=== PATIENT | male | born 1950 | race Caucasian/White ===

== ENCOUNTER 2019-04-03 09:29 | Outpatient (CLI) | payer MEDICARE, MEDICAID, SELFPAY ==
[2019-04-03 09:57] LABS: Abs Immature Grans 0.02 k/cumm (0.0-0.09); Absolute Basophil Count 0.03 k/cumm (0.0-0.2); Absolute Eosinophil Count 0.73 k/cumm (0.0-0.7); Absolute Lymphocyte Count 3.32 k/cumm (1.2-3.4); Absolute Monocyte Count 0.77 k/cumm (0.11-0.7); Absolute Neutrophil Count 4.16 k/cumm (1.2-6.7); Basophils % 0.3; Eosinophils % 8.1; HCT 38.2 % (40.0-50.0); HGB 12.7 g/dL (13.5-17.5); Immature Grans % 0.2; Lymphocytes % 36.8; Mean Corp. HGB Concentration 33.2 g/dL (32.0-36.0); Mean Corpuscular Hemoglobin 28.8 pg (27.0-33.0); Mean Corpuscular Volume 86.6 fL (80-95); Mean Platelet Volume 9.3 fL (8.0-11.0); Monocytes % 8.5; Neutrophils % 46.1; Platelet Count 333 x1000/uL (130-400); RBC 4.41 m/cumm (4.50-6.00); RBC Distribution Width 13.4 % (11.8-14.1); White Blood Cell Count 9.03 k/cumm (4.4-10.8)
[2019-04-03 10:12] LABS: ALT 19 U/L (12-78); AST 14 U/L (15-37); Albumin 3.5 g/dL (3.4-5.0); Alkaline Phosphatase 141 U/L (46-116); Anion Gap 9.4 mmol/L (3-11); BUN 24 mg/dL (7-18); Bilirubin, Total 0.4 mg/dL (0.2-1.0); CO2 27.6 mmol/L (21.0-32.0); CREATININE 1.83 mg/dL (0.70-1.30); Calcium 9.2 mg/dL (8.5-10.1); Chloride 103 mmol/L (98-107); Estimated GFR 36.78 (mL/min/1.73m2); Glucose 103 mg/dL (70-100); LDH 184 U/L (85-227); Potassium 4.1 mmol/L (3.5-5.1); Sodium 140 mmol/L (136-145); Total Protein 7.6 g/dL (6.4-8.2)
== END 2019-04-03 09:49 ==
PROVIDERS: PCP Family Medicine; Visit Provider Radiology Radiation Oncology
DX: C34.92 Malignant neoplasm of unspecified part of left bronchus or lung (principal)
CPT/HCPCS: 36415; 80053; 83615; 85025

== ENCOUNTER 2019-04-10 09:20 | Outpatient (CLI) | payer MEDICARE, MEDICAID, SELFPAY ==
[2019-04-10 09:54] LABS: Abs Immature Grans 0.05 k/cumm (0.0-0.09); Absolute Basophil Count 0.01 k/cumm (0.0-0.2); Absolute Eosinophil Count 0.31 k/cumm (0.0-0.7); Absolute Lymphocyte Count 1.46 k/cumm (1.2-3.4); Absolute Monocyte Count 0.35 k/cumm (0.11-0.7); Absolute Neutrophil Count 3.91 k/cumm (1.2-6.7); Basophils % 0.2; Eosinophils % 5.1; HCT 35.2 % (40.0-50.0); HGB 11.6 g/dL (13.5-17.5); Immature Grans % 0.8; Mean Corpuscular Hemoglobin 28.6 pg (27.0-33.0); Mean Corpuscular Volume 86.9 fL (80-95); Mean Platelet Volume 9.3 fL (8.0-11.0); Monocytes % 5.7; Neutrophils % 64.2; Platelet Count 329 x1000/uL (130-400); RBC 4.05 m/cumm (4.50-6.00); White Blood Cell Count 6.09 k/cumm (4.4-10.8)
[2019-04-10 10:08] LABS: ALT 18 U/L (12-78); AST 12 U/L (15-37); Albumin 3.1 g/dL (3.4-5.0); Alkaline Phosphatase 121 U/L (46-116); Anion Gap 5.5 mmol/L (3-11); BUN 26 mg/dL (7-18); Bilirubin, Total 0.3 mg/dL (0.2-1.0); CO2 29.5 mmol/L (21.0-32.0); CREATININE 1.75 mg/dL (0.70-1.30); Calcium 9.1 mg/dL (8.5-10.1); Chloride 104 mmol/L (98-107); Estimated GFR 38.73 (mL/min/1.73m2); Glucose 121 mg/dL (70-100); LDH 145 U/L (85-227); Potassium 4.9 mmol/L (3.5-5.1); Sodium 139 mmol/L (136-145)
== END 2019-04-10 09:40 ==
PROVIDERS: PCP Family Medicine; Visit Provider Registered Nurse Oncology
DX: C34.92 Malignant neoplasm of unspecified part of left bronchus or lung (principal)
CPT/HCPCS: 36415; 80053; 83615; 85025

== ENCOUNTER 2019-04-17 09:31 | Outpatient (CLI) | payer MEDICARE, MEDICAID, SELFPAY ==
[2019-04-17 09:59] LABS: Abs Immature Grans 0.02 k/cumm (0.0-0.09); Absolute Basophil Count 0.03 k/cumm (0.0-0.2); Absolute Eosinophil Count 0.22 k/cumm (0.0-0.7); Absolute Lymphocyte Count 0.88 k/cumm (1.2-3.4); Absolute Monocyte Count 0.41 k/cumm (0.11-0.7); Absolute Neutrophil Count 2.72 k/cumm (1.2-6.7); Basophils % 0.7; Eosinophils % 5.1; HCT 35.6 % (40.0-50.0); Immature Grans % 0.5; Lymphocytes % 20.6; Mean Corp. HGB Concentration 33.7 g/dL (32.0-36.0); Mean Corpuscular Hemoglobin 28.6 pg (27.0-33.0); Mean Platelet Volume 8.8 fL (8.0-11.0); Monocytes % 9.6; Neutrophils % 63.5; Platelet Count 263 x1000/uL (130-400); RBC 4.19 m/cumm (4.50-6.00); White Blood Cell Count 4.28 k/cumm (4.4-10.8)
[2019-04-17 10:15] LABS: ALT 20 U/L (12-78); AST 13 U/L (15-37); Albumin 3.3 g/dL (3.4-5.0); Alkaline Phosphatase 112 U/L (46-116); Anion Gap 9.3 mmol/L (3-11); BUN 22 mg/dL (7-18); Bilirubin, Total 0.3 mg/dL (0.2-1.0); CO2 27.7 mmol/L (21.0-32.0); CREATININE 1.42 mg/dL (0.70-1.30); Calcium 9.5 mg/dL (8.5-10.1); Chloride 102 mmol/L (98-107); Estimated GFR 49.29 (mL/min/1.73m2); Glucose 136 mg/dL (70-100); LDH 160 U/L (85-227); Potassium 4.1 mmol/L (3.5-5.1); Sodium 139 mmol/L (136-145); Total Protein 7.5 g/dL (6.4-8.2)
== END 2019-04-17 09:51 ==
PROVIDERS: PCP Family Medicine; Visit Provider Registered Nurse Oncology
DX: C34.92 Malignant neoplasm of unspecified part of left bronchus or lung (principal)
CPT/HCPCS: 36415; 80053; 83615; 85025

== ENCOUNTER 2019-04-24 01:57 | Outpatient (CLI) | payer MEDICARE, MEDICAID, SELFPAY ==
[2019-04-24 09:56] LABS: Abs Immature Grans 0.02 k/cumm (0.0-0.09); Absolute Basophil Count 0.03 k/cumm (0.0-0.2); Absolute Eosinophil Count 0.25 k/cumm (0.0-0.7); Absolute Lymphocyte Count 0.99 k/cumm (1.2-3.4); Absolute Monocyte Count 0.31 k/cumm (0.11-0.7); Absolute Neutrophil Count 2.13 k/cumm (1.2-6.7); Basophils % 0.8; Eosinophils % 6.7; HCT 34.1 % (40.0-50.0); HGB 11.5 g/dL (13.5-17.5); Immature Grans % 0.5; Lymphocytes % 26.5; Mean Corp. HGB Concentration 33.7 g/dL (32.0-36.0); Mean Corpuscular Hemoglobin 28.8 pg (27.0-33.0); Mean Corpuscular Volume 85.5 fL (80-95); Mean Platelet Volume 9.1 fL (8.0-11.0); Monocytes % 8.3; Neutrophils % 57.2; Platelet Count 276 x1000/uL (130-400); RBC 3.99 m/cumm (4.50-6.00); RBC Distribution Width 13.4 % (11.8-14.1); White Blood Cell Count 3.73 k/cumm (4.4-10.8)
[2019-04-24 10:06] LABS: ALT 27 U/L (16-63); AST 19 U/L (15-37); Albumin 3.2 g/dL (3.4-5.0); Alkaline Phosphatase 99 U/L (46-116); Anion Gap 10.1 mmol/L (3-11); BUN 22 mg/dL (7-18); Bilirubin, Total 0.3 mg/dL (0.2-1.0); CO2 25.9 mmol/L (21.0-32.0); CREATININE 1.35 mg/dL (0.70-1.30); Calcium 9.4 mg/dL (8.5-10.1); Chloride 102 mmol/L (98-107); Estimated GFR 52.25 (mL/min/1.73m2); Glucose 107 mg/dL (70-100); LDH 182 U/L (85-227); Potassium 4.7 mmol/L (3.5-5.1); Sodium 138 mmol/L (136-145); Total Protein 7.3 g/dL (6.4-8.2)
== END 2019-04-24 02:17 ==
PROVIDERS: PCP Family Medicine; Visit Provider Registered Nurse Oncology
DX: C34.92 Malignant neoplasm of unspecified part of left bronchus or lung (principal)
CPT/HCPCS: 36415; 80053; 83615; 85025

== ENCOUNTER 2019-05-02 01:09 | Outpatient (CLI) | payer MEDICARE, MEDICAID, SELFPAY ==
[2019-05-02 09:53] LABS: Abs Immature Grans 0.03 k/cumm (0.0-0.09); Absolute Basophil Count 0.06 k/cumm (0.0-0.2); Absolute Eosinophil Count 0.18 k/cumm (0.0-0.7); Absolute Lymphocyte Count 0.76 k/cumm (1.2-3.4); Absolute Monocyte Count 0.37 k/cumm (0.11-0.7); Absolute Neutrophil Count 2.53 k/cumm (1.2-6.7); Basophils % 1.5; Eosinophils % 4.6; HCT 34.9 % (40.0-50.0); HGB 11.7 g/dL (13.5-17.5); Immature Grans % 0.8; Lymphocytes % 19.3; Mean Corp. HGB Concentration 33.5 g/dL (32.0-36.0); Mean Corpuscular Hemoglobin 28.3 pg (27.0-33.0); Mean Corpuscular Volume 84.3 fL (80-95); Mean Platelet Volume 9.7 fL (8.0-11.0); Monocytes % 9.4; Neutrophils % 64.4; Platelet Count 252 x1000/uL (130-400); RBC 4.14 m/cumm (4.50-6.00); RBC Distribution Width 14.1 % (11.8-14.1); White Blood Cell Count 3.93 k/cumm (4.4-10.8)
[2019-05-02 10:38] LABS: ALT 52 U/L (16-63); AST 39 U/L (15-37); Albumin 3.3 g/dL (3.4-5.0); Alkaline Phosphatase 105 U/L (46-116); Anion Gap 13.5 mmol/L (3-11); BUN 28 mg/dL (7-18); Bilirubin, Total 0.4 mg/dL (0.2-1.0); CO2 22.5 mmol/L (21.0-32.0); CREATININE 2.01 mg/dL (0.70-1.30); Chloride 104 mmol/L (98-107); Estimated GFR 33.01 (mL/min/1.73m2); Glucose 101 mg/dL (70-100); LDH 218 U/L (85-227); Potassium 3.9 mmol/L (3.5-5.1); Sodium 140 mmol/L (136-145); Total Protein 7.3 g/dL (6.4-8.2)
== END 2019-05-02 01:29 ==
PROVIDERS: PCP Family Medicine; Visit Provider Registered Nurse Oncology
DX: C34.92 Malignant neoplasm of unspecified part of left bronchus or lung (principal)
CPT/HCPCS: 36415; 80053; 83615; 85025

== ENCOUNTER 2019-05-08 01:04 | Outpatient (CLI) | payer MEDICARE, MEDICAID, SELFPAY ==
[2019-05-08 09:58] LABS: Abs Immature Grans 0.01 k/cumm (0.0-0.09); Absolute Basophil Count 0.02 k/cumm (0.0-0.2); Absolute Eosinophil Count 0.13 k/cumm (0.0-0.7); Absolute Lymphocyte Count 0.49 k/cumm (1.2-3.4); Absolute Monocyte Count 0.16 k/cumm (0.11-0.7); Absolute Neutrophil Count 1.75 k/cumm (1.2-6.7); Basophils % 0.8; Eosinophils % 5.1; HCT 34.5 % (40.0-50.0); HGB 11.7 g/dL (13.5-17.5); Immature Grans % 0.4; Lymphocytes % 19.1; Mean Corp. HGB Concentration 33.9 g/dL (32.0-36.0); Mean Corpuscular Hemoglobin 28.8 pg (27.0-33.0); Mean Platelet Volume 9.1 fL (8.0-11.0); Monocytes % 6.3; Neutrophils % 68.3; RBC 4.06 m/cumm (4.50-6.00); RBC Distribution Width 14.9 % (11.8-14.1); White Blood Cell Count 2.56 k/cumm (4.4-10.8)
[2019-05-08 10:03] LABS: Platelet Count 137 x1000/uL (130-400)
[2019-05-08 10:24] LABS: ALT 58 U/L (16-63); AST 34 U/L (15-37); Albumin 3.3 g/dL (3.4-5.0); Alkaline Phosphatase 115 U/L (46-116); Anion Gap 9.3 mmol/L (3-11); BUN 17 mg/dL (7-18); Bilirubin, Total 0.3 mg/dL (0.2-1.0); CO2 24.7 mmol/L (21.0-32.0); CREATININE 1.34 mg/dL (0.70-1.30); Calcium 9.1 mg/dL (8.5-10.1); Chloride 107 mmol/L (98-107); Glucose 125 mg/dL (70-100); LDH 212 U/L (85-227); Potassium 4.5 mmol/L (3.5-5.1); Sodium 141 mmol/L (136-145)
== END 2019-05-08 01:24 ==
PROVIDERS: PCP Family Medicine; Visit Provider Registered Nurse Oncology
DX: C34.92 Malignant neoplasm of unspecified part of left bronchus or lung (principal)
CPT/HCPCS: 36415; 80053; 83615; 85025

== ENCOUNTER 2019-05-15 01:26 | Outpatient (CLI) | payer MEDICARE, MEDICAID, SELFPAY ==
[2019-05-15 09:45] LABS: Abs Immature Grans 0.01 k/cumm (0.0-0.09); Absolute Basophil Count 0.01 k/cumm (0.0-0.2); Absolute Eosinophil Count 0.06 k/cumm (0.0-0.7); Absolute Lymphocyte Count 0.46 k/cumm (1.2-3.4); Absolute Monocyte Count 0.32 k/cumm (0.11-0.7); Absolute Neutrophil Count 1.42 k/cumm (1.2-6.7); Basophils % 0.4; Eosinophils % 2.6; HCT 27.4 % (40.0-50.0); HGB 9.3 g/dL (13.5-17.5); Immature Grans % 0.4; Lymphocytes % 20.2; Mean Corp. HGB Concentration 33.9 g/dL (32.0-36.0); Mean Corpuscular Hemoglobin 28.7 pg (27.0-33.0); Mean Corpuscular Volume 84.6 fL (80-95); Neutrophils % 62.4; Platelet Count 164 x1000/uL (130-400); RBC 3.24 m/cumm (4.50-6.00); RBC Distribution Width 14.8 % (11.8-14.1); White Blood Cell Count 2.28 k/cumm (4.4-10.8)
[2019-05-15 09:54] LABS: ALT 29 U/L (16-63); AST 20 U/L (15-37); Albumin 2.9 g/dL (3.4-5.0); Alkaline Phosphatase 106 U/L (46-116); Anion Gap 10.8 mmol/L (3-11); BUN 12 mg/dL (7-18); Bilirubin, Total 0.4 mg/dL (0.2-1.0); CO2 21.2 mmol/L (21.0-32.0); CREATININE 1.28 mg/dL (0.70-1.30); Calcium 8.7 mg/dL (8.5-10.1); Chloride 105 mmol/L (98-107); Estimated GFR 55.56 (mL/min/1.73m2); Glucose 113 mg/dL (70-100); LDH 177 U/L (85-227); Sodium 137 mmol/L (136-145); Total Protein 6.5 g/dL (6.4-8.2)
[2019-05-15 10:19] LABS: Diff Comment Diff Reviewed; RBC Morphology Normal
== END 2019-05-15 01:46 ==
PROVIDERS: PCP Family Medicine; Visit Provider Registered Nurse Oncology
DX: C34.92 Malignant neoplasm of unspecified part of left bronchus or lung (principal)
CPT/HCPCS: 36415; 80053; 83615; 85025

== ENCOUNTER 2019-05-22 10:34 | Outpatient (CLI) | payer MEDICARE, MEDICAID, SELFPAY ==
[2019-05-22 10:59] LABS: Abs Immature Grans 0.02 k/cumm (0.0-0.09); Absolute Basophil Count 0.03 k/cumm (0.0-0.2); Absolute Eosinophil Count 0.05 k/cumm (0.0-0.7); Absolute Lymphocyte Count 0.55 k/cumm (1.2-3.4); Absolute Monocyte Count 0.58 k/cumm (0.11-0.7); Absolute Neutrophil Count 1.46 k/cumm (1.2-6.7); Basophils % 1.1; Eosinophils % 1.9; HCT 28.9 % (40.0-50.0); HGB 9.8 g/dL (13.5-17.5); Immature Grans % 0.7; Lymphocytes % 20.4; Mean Corp. HGB Concentration 33.9 g/dL (32.0-36.0); Mean Corpuscular Hemoglobin 29.8 pg (27.0-33.0); Mean Corpuscular Volume 87.8 fL (80-95); Mean Platelet Volume 7.8 fL (8.0-11.0); Monocytes % 21.6; Neutrophils % 54.3; Platelet Count 294 x1000/uL (130-400); RBC 3.29 m/cumm (4.50-6.00); RBC Distribution Width 19.2 % (11.8-14.1); White Blood Cell Count 2.69 k/cumm (4.4-10.8)
[2019-05-22 11:09] LABS: ALT 24 U/L (16-63); AST 26 U/L (15-37); Albumin 3.1 g/dL (3.4-5.0); Alkaline Phosphatase 107 U/L (46-116); BUN 10 mg/dL (7-18); Bilirubin, Total 0.3 mg/dL (0.2-1.0); Calcium 9.2 mg/dL (8.5-10.1); Chloride 102 mmol/L (98-107); Estimated GFR 37.49 (mL/min/1.73m2); Glucose 105 mg/dL (70-100); LDH 226 U/L (85-227); Potassium 4.4 mmol/L (3.5-5.1); Sodium 136 mmol/L (136-145); Total Protein 6.9 g/dL (6.4-8.2)
[2019-05-22 11:17] LABS: Anisocytosis 2+; Basophilic Stippling Present; Diff Comment Diff Reviewed; Hypochromasia 1+; Macrocytosis 1+; Microcytosis 1+; Polychromasia Present
== END 2019-05-22 10:54 ==
PROVIDERS: PCP Family Medicine; Visit Provider Registered Nurse Oncology
DX: C34.92 Malignant neoplasm of unspecified part of left bronchus or lung (principal)
CPT/HCPCS: 36415; 80053; 83615; 85025

== ENCOUNTER 2019-09-22 06:58 | Outpatient (CLI) | payer MEDICARE, MEDICAID, SELFPAY ==
[2019-09-22 07:17] LABS: Abs Immature Grans 0.02 k/cumm (0.0-0.09); Absolute Basophil Count 0.02 k/cumm (0.0-0.2); Absolute Lymphocyte Count 1.54 k/cumm (1.2-3.4); Absolute Monocyte Count 0.73 k/cumm (0.11-0.7); Absolute Neutrophil Count 7.07 k/cumm (1.2-6.7); Basophils % 0.2; Eosinophils % 2.1; HGB 13.1 g/dL (13.5-17.5); Immature Grans % 0.2 %; Lymphocytes % 16.1; Mean Corp. HGB Concentration 32.8 g/dL (32.0-36.0); Mean Corpuscular Hemoglobin 25.8 pg (27.0-33.0); Mean Corpuscular Volume 78.9 fL (80-95); Mean Platelet Volume 8.5 fL (8.0-11.0); Monocytes % 7.6; Neutrophils % 73.8; Platelet Count 392 x1000/uL (130-400); RBC 5.07 m/cumm (4.50-6.00); RBC Distribution Width 14.2 % (11.8-14.1); White Blood Cell Count 9.58 k/cumm (4.4-10.8)
[2019-09-22 07:26] LABS: ALT 18 U/L (16-63); AST 19 U/L (15-37); Albumin 3.5 g/dL (3.4-5.0); Alkaline Phosphatase 100 U/L (46-116); Anion Gap 8.2 mmol/L (3-11); BUN 14 mg/dL (7-18); Bilirubin, Total 0.3 mg/dL (0.2-1.0); CO2 29.8 mmol/L (21.0-32.0); Calcium 9.8 mg/dL (8.5-10.1); Chloride 101 mmol/L (98-107); Estimated GFR 54.42 (mL/min/1.73m2); Glucose 177 mg/dL (74-106); LDH 171 U/L (85-227); Potassium 3.5 mmol/L (3.5-5.1); Sodium 139 mmol/L (136-145); Total Protein 8.1 g/dL (6.4-8.2)
[2019-09-22 09:20] LABS: FREE T4 0.86 ng/dL (0.76-1.46); TSH 2.89 uIU/mL (0.36-3.74)
== END 2019-09-22 07:18 ==
PROVIDERS: PCP Family Medicine; Visit Provider Registered Nurse Oncology
DX: C34.92 Malignant neoplasm of unspecified part of left bronchus or lung (principal); E03.2 Hypothyroidism due to medicaments and other exogenous substances; C77.9 Secondary and unspecified malignant neoplasm of lymph node, unspecified
CPT/HCPCS: 36415; 80053; 83615; 84439; 84443; 85025

== ENCOUNTER 2019-10-19 02:18 | Outpatient (RCR) | payer MEDICARE, MEDICAID, SELFPAY ==
[2019-10-05] MEDS: Normal Saline Flush 10 ML SYR IVP (08:00)
[2019-10-05 08:23] LABS: Abs Immature Grans 0.02 k/cumm (0.0-0.09); Absolute Basophil Count 0.02 k/cumm (0.0-0.2); Absolute Eosinophil Count 0.39 k/cumm (0.0-0.7); Absolute Lymphocyte Count 1.96 k/cumm (1.2-3.4); Absolute Monocyte Count 0.67 k/cumm (0.11-0.7); Basophils % 0.2; Eosinophils % 4.8; HCT 36.5 % (40.0-50.0); HGB 11.6 g/dL (13.5-17.5); Immature Grans % 0.2 %; Lymphocytes % 24.3; Mean Corp. HGB Concentration 31.8 g/dL (32.0-36.0); Mean Corpuscular Hemoglobin 25.2 pg (27.0-33.0); Mean Corpuscular Volume 79.2 fL (80-95); Mean Platelet Volume 8.4 fL (8.0-11.0); Monocytes % 8.3; Neutrophils % 62.2; Platelet Count 389 x1000/uL (130-400); RBC 4.61 m/cumm (4.50-6.00); RBC Distribution Width 14.7 % (11.8-14.1); White Blood Cell Count 8.06 k/cumm (4.4-10.8)
[2019-10-05 08:45] LABS: ALT 18 U/L (16-63); AST 21 U/L (15-37); Albumin 3.4 g/dL (3.4-5.0); Alkaline Phosphatase 110 U/L (46-116); Anion Gap 7.9 mmol/L (3-11); BUN 16 mg/dL (7-18); Bilirubin, Total 0.2 mg/dL (0.2-1.0); CO2 31.1 mmol/L (21.0-32.0); CREATININE 1.27 mg/dL (0.70-1.30); Calcium 9.6 mg/dL (8.5-10.1); Chloride 102 mmol/L (98-107); Estimated GFR 55.91 (mL/min/1.73m2); FREE T4 0.97 ng/dL (0.76-1.46); Glucose 81 mg/dL (74-106); LDH 188 U/L (85-227); Sodium 141 mmol/L (136-145); TSH 17.08 uIU/mL (0.36-3.74); Total Protein 7.8 g/dL (6.4-8.2)
[2019-10-19 08:34] LABS: Abs Immature Grans 0.02 k/cumm (0.0-0.09); Absolute Basophil Count 0.03 k/cumm (0.0-0.2); Absolute Eosinophil Count 0.29 k/cumm (0.0-0.7); Absolute Lymphocyte Count 1.71 k/cumm (1.2-3.4); Absolute Monocyte Count 0.58 k/cumm (0.11-0.7); Absolute Neutrophil Count 5.25 k/cumm (1.2-6.7); Basophils % 0.4; Eosinophils % 3.7; HCT 35.7 % (40.0-50.0); HGB 11.5 g/dL (13.5-17.5); Immature Grans % 0.3 %; Lymphocytes % 21.7; Mean Corp. HGB Concentration 32.2 g/dL (32.0-36.0); Mean Corpuscular Hemoglobin 25.6 pg (27.0-33.0); Mean Corpuscular Volume 79.3 fL (80-95); Mean Platelet Volume 8.3 fL (8.0-11.0); Monocytes % 7.4; Neutrophils % 66.5; Platelet Count 371 x1000/uL (130-400); White Blood Cell Count 7.88 k/cumm (4.4-10.8)
[2019-10-19 08:58] LABS: ALT 18 U/L (16-63); AST 23 U/L (15-37); Albumin 3.2 g/dL (3.4-5.0); Alkaline Phosphatase 111 U/L (46-116); Anion Gap 9.9 mmol/L (3-11); BUN 20 mg/dL (7-18); Bilirubin, Total 0.2 mg/dL (0.2-1.0); CO2 29.1 mmol/L (21.0-32.0); CREATININE 1.35 mg/dL (0.70-1.30); Calcium 9.3 mg/dL (8.5-10.1); Chloride 103 mmol/L (98-107); FREE T4 1.03 ng/dL (0.76-1.46); Glucose 146 mg/dL (74-106); LDH 173 U/L (85-227); Potassium 3.7 mmol/L (3.5-5.1); Sodium 142 mmol/L (136-145); TSH 8.91 uIU/mL (0.36-3.74); Total Protein 7.6 g/dL (6.4-8.2)
[2019-10-19] MEDS: Normal Saline Flush 10 ML SYR IVP (09:05)
== END 2019-10-28 23:59 | disposition home or self-care (01) ==
LOC: INF 02:18
PROVIDERS: PCP Family Medicine; Visit Provider Internal Medicine Hospice and Palliative Medicine
DX: C77.9 Secondary and unspecified malignant neoplasm of lymph node, unspecified (principal); Z79.899 Other long term (current) drug therapy
CPT/HCPCS: 36591; 80053; 83615; 84439; 84443; 85025

== ENCOUNTER 2019-11-16 00:44 | Outpatient (RCR) | payer MEDICARE, MEDICAID, SELFPAY ==
[2019-11-02] MEDS: Normal Saline Flush 10 ML SYR IVP (07:56)
[2019-11-02 08:03] LABS: Abs Immature Grans 0.02 k/cumm (0.0-0.09); Absolute Basophil Count 0.04 k/cumm (0.0-0.2); Absolute Lymphocyte Count 1.78 k/cumm (1.2-3.4); Absolute Monocyte Count 0.68 k/cumm (0.11-0.7); Basophils % 0.5; Eosinophils % 5.1; HCT 36.4 % (40.0-50.0); HGB 11.6 g/dL (13.5-17.5); Immature Grans % 0.3 %; Lymphocytes % 22.8; Mean Corp. HGB Concentration 31.9 g/dL (32.0-36.0); Mean Corpuscular Hemoglobin 25.3 pg (27.0-33.0); Mean Corpuscular Volume 79.3 fL (80-95); Mean Platelet Volume 8.3 fL (8.0-11.0); Monocytes % 8.7; Neutrophils % 62.6; Platelet Count 354 x1000/uL (130-400); RBC 4.59 m/cumm (4.50-6.00); RBC Distribution Width 15.9 % (11.8-14.1); White Blood Cell Count 7.82 k/cumm (4.4-10.8)
[2019-11-02 08:22] LABS: ALT 21 U/L (16-63); AST 16 U/L (15-37); Albumin 3.5 g/dL (3.4-5.0); Alkaline Phosphatase 116 U/L (46-116); Anion Gap 7.9 mmol/L (3-11); BUN 18 mg/dL (7-18); Bilirubin, Total 0.2 mg/dL (0.2-1.0); CO2 29.1 mmol/L (21.0-32.0); CREATININE 1.26 mg/dL (0.70-1.30); Chloride 101 mmol/L (98-107); Estimated GFR 56.42 (mL/min/1.73m2); FREE T4 1.22 ng/dL (0.76-1.46); Glucose 129 mg/dL (74-106); LDH 156 U/L (85-227); Sodium 138 mmol/L (136-145); Total Protein 7.7 g/dL (6.4-8.2)
[2019-11-02 08:58] LABS: Ferritin 43 ng/mL (26-388)
[2019-11-02 09:13] LABS: Iron 29 ug/dL (65-175); Total Iron Binding Capacity 214 ug/dL (250-450); Transferrin Sat 14 % (20-55)
[2019-11-02 13:31] LABS: TSH 8.02 uIU/mL (0.36-3.74)
[2019-11-16] MEDS: Normal Saline Flush 10 ML SYR IVP (07:42)
[2019-11-16 07:47] LABS: Abs Immature Grans 0.02 k/cumm (0.0-0.09); Absolute Basophil Count 0.03 k/cumm (0.0-0.2); Absolute Lymphocyte Count 1.45 k/cumm (1.2-3.4); Absolute Neutrophil Count 5.24 k/cumm (1.2-6.7); Basophils % 0.4; Eosinophils % 5.2; HCT 36.3 % (40.0-50.0); HGB 11.7 g/dL (13.5-17.5); Immature Grans % 0.3 %; Lymphocytes % 18.7; Mean Corp. HGB Concentration 32.2 g/dL (32.0-36.0); Mean Corpuscular Hemoglobin 25.6 pg (27.0-33.0); Mean Corpuscular Volume 79.4 fL (80-95); Mean Platelet Volume 8.5 fL (8.0-11.0); Monocytes % 7.8; Neutrophils % 67.6; Platelet Count 377 x1000/uL (130-400); RBC 4.57 m/cumm (4.50-6.00); White Blood Cell Count 7.74 k/cumm (4.4-10.8)
[2019-11-16 08:18] LABS: ALT 20 U/L (16-63); AST 17 U/L (15-37); Albumin 3.5 g/dL (3.4-5.0); Alkaline Phosphatase 102 U/L (46-116); BUN 18 mg/dL (7-18); Bilirubin, Total 0.3 mg/dL (0.2-1.0); CREATININE 1.27 mg/dL (0.70-1.30); Calcium 9.2 mg/dL (8.5-10.1); Chloride 102 mmol/L (98-107); Estimated GFR 55.91 (mL/min/1.73m2); FREE T4 1.14 ng/dL (0.76-1.46); Glucose 151 mg/dL (74-106); LDH 157 U/L (85-227); Potassium 4.2 mmol/L (3.5-5.1); Sodium 139 mmol/L (136-145); TSH 3.19 uIU/mL (0.36-3.74)
[2019-11-16 08:24] LABS: Ferritin 48 ng/mL (26-388)
[2019-11-16 08:58] LABS: Iron 31 ug/dL (65-175); Total Iron Binding Capacity 248 ug/dL (250-450); Transferrin Sat 13 % (20-55)
== END 2019-11-28 23:59 | disposition home or self-care (01) ==
LOC: INF 00:44
PROVIDERS: Nurse Practitioner Adult Health; PCP Family Medicine; Visit Provider Internal Medicine Hospice and Palliative Medicine
DX: D64.9 Anemia, unspecified (principal); C77.9 Secondary and unspecified malignant neoplasm of lymph node, unspecified; E03.2 Hypothyroidism due to medicaments and other exogenous substances; Z45.2 Encounter for adjustment and management of vascular access device
CPT/HCPCS: 36591; 80053; 82728; 83540; 83550; 83615; 84439; 84443; 85025

== ENCOUNTER 2019-12-28 01:04 | Outpatient (RCR) | payer MEDICARE, MEDICAID, SELFPAY ==
[2019-11-30] MEDS: Normal Saline Flush 10 ML SYR IVP (07:47)
[2019-11-30 07:56] LABS: Abs Immature Grans 0.02 k/cumm (0.0-0.09); Absolute Basophil Count 0.01 k/cumm (0.0-0.2); Absolute Eosinophil Count 0.37 k/cumm (0.0-0.7); Absolute Lymphocyte Count 1.43 k/cumm (1.2-3.4); Absolute Monocyte Count 0.64 k/cumm (0.11-0.7); Absolute Neutrophil Count 5.42 k/cumm (1.2-6.7); Basophils % 0.1; Eosinophils % 4.7; HCT 35.8 % (40.0-50.0); HGB 11.5 g/dL (13.5-17.5); Immature Grans % 0.3 %; Lymphocytes % 18.1; Mean Corp. HGB Concentration 32.1 g/dL (32.0-36.0); Mean Corpuscular Hemoglobin 25.6 pg (27.0-33.0); Mean Corpuscular Volume 79.6 fL (80-95); Mean Platelet Volume 8.3 fL (8.0-11.0); Monocytes % 8.1; Neutrophils % 68.7; Platelet Count 347 x1000/uL (130-400); RBC Distribution Width 15.4 % (11.8-14.1); White Blood Cell Count 7.89 k/cumm (4.4-10.8)
[2019-11-30 08:10] LABS: ALT 24 U/L (16-63); AST 18 U/L (15-37); Albumin 3.4 g/dL (3.4-5.0); Alkaline Phosphatase 117 U/L (46-116); Anion Gap 6.7 mmol/L (3-11); BUN 19 mg/dL (7-18); Bilirubin, Total 0.3 mg/dL (0.2-1.0); CO2 29.3 mmol/L (21.0-32.0); CREATININE 1.34 mg/dL (0.70-1.30); Calcium 9.4 mg/dL (8.5-10.1); Chloride 101 mmol/L (98-107); Estimated GFR 52.55 (mL/min/1.73m2); Glucose 167 mg/dL (74-106); Potassium 4.1 mmol/L (3.5-5.1); Sodium 137 mmol/L (136-145)
[2019-12-14] MEDS: Normal Saline Flush 10 ML SYR IVP (09:36)
[2019-12-14 09:47] LABS: Abs Immature Grans 0.02 k/cumm (0.0-0.09); Absolute Basophil Count 0.01 k/cumm (0.0-0.2); Absolute Eosinophil Count 0.19 k/cumm (0.0-0.7); Absolute Monocyte Count 0.56 k/cumm (0.11-0.7); Absolute Neutrophil Count 9.28 k/cumm (1.2-6.7); Basophils % 0.1; Eosinophils % 1.7; HCT 37.4 % (40.0-50.0); Immature Grans % 0.2 %; Lymphocytes % 9.5; Mean Corp. HGB Concentration 32.1 g/dL (32.0-36.0); Mean Corpuscular Hemoglobin 25.4 pg (27.0-33.0); Mean Corpuscular Volume 79.2 fL (80-95); Mean Platelet Volume 8.6 fL (8.0-11.0); Neutrophils % 83.5; Platelet Count 339 x1000/uL (130-400); RBC 4.72 m/cumm (4.50-6.00); RBC Distribution Width 14.9 % (11.8-14.1); White Blood Cell Count 11.11 k/cumm (4.4-10.8)
[2019-12-14 10:10] LABS: Absolute Lymphocyte Count 1.06 k/cumm (1.2-3.4)
[2019-12-14 10:14] LABS: ALT 22 U/L (16-63); AST 18 U/L (15-37); Albumin 3.5 g/dL (3.4-5.0); Alkaline Phosphatase 103 U/L (46-116); Anion Gap 6.6 mmol/L (3-11); BUN 21 mg/dL (7-18); Bilirubin, Total 0.3 mg/dL (0.2-1.0); CO2 31.4 mmol/L (21.0-32.0); CREATININE 1.39 mg/dL (0.70-1.30); Calcium 9.7 mg/dL (8.5-10.1); Chloride 101 mmol/L (98-107); Estimated GFR 50.37 (mL/min/1.73m2); FREE T4 1.09 ng/dL (0.76-1.46); Glucose 163 mg/dL (74-106); LDH 156 U/L (85-227); Potassium 4.2 mmol/L (3.5-5.1); Sodium 139 mmol/L (136-145); TSH 1.57 uIU/mL (0.36-3.74); Total Protein 8.1 g/dL (6.4-8.2)
== END 2019-12-28 23:59 | disposition home or self-care (01) ==
LOC: INF 01:04
PROVIDERS: PCP Family Medicine; Visit Provider Internal Medicine Hospice and Palliative Medicine
DX: D64.9 Anemia, unspecified (principal); Z45.2 Encounter for adjustment and management of vascular access device
CPT/HCPCS: 36591; 80053; 83615; 84439; 84443; 85025

== ENCOUNTER 2020-01-11 01:38 | Outpatient (RCR) | payer MEDICARE, MEDICAID, SELFPAY ==
[2020-01-11] MEDS: Normal Saline Flush 10 ML SYR IVP (12:23)
[2020-01-11 12:50] LABS: Abs Immature Grans 0.02 k/cumm (0.0-0.09); Absolute Basophil Count 0.02 k/cumm (0.0-0.2); Absolute Eosinophil Count 0.38 k/cumm (0.0-0.7); Absolute Lymphocyte Count 1.61 k/cumm (1.2-3.4); Absolute Monocyte Count 0.65 k/cumm (0.11-0.7); Absolute Neutrophil Count 6.52 k/cumm (1.2-6.7); Basophils % 0.2; Eosinophils % 4.1; HCT 37.9 % (40.0-50.0); HGB 12.6 g/dL (13.5-17.5); Immature Grans % 0.2 %; Lymphocytes % 17.5; Mean Corp. HGB Concentration 33.2 g/dL (32.0-36.0); Mean Corpuscular Hemoglobin 26.4 pg (27.0-33.0); Mean Corpuscular Volume 79.3 fL (80-95); Mean Platelet Volume 8.7 fL (8.0-11.0); Monocytes % 7.1; Neutrophils % 70.9; Platelet Count 319 x1000/uL (130-400); RBC 4.78 m/cumm (4.50-6.00); RBC Distribution Width 14.6 % (11.8-14.1)
[2020-01-11 13:11] LABS: ALT 25 U/L (16-63); AST 18 U/L (15-37); Albumin 3.7 g/dL (3.4-5.0); Alkaline Phosphatase 132 U/L (46-116); Anion Gap 7.3 mmol/L (3-11); BUN 18 mg/dL (7-18); Bilirubin, Total 0.3 mg/dL (0.2-1.0); CO2 28.7 mmol/L (21.0-32.0); CREATININE 1.24 mg/dL (0.70-1.30); Calcium 9.6 mg/dL (8.5-10.1); Chloride 98 mmol/L (98-107); Estimated GFR 57.47 (mL/min/1.73m2); FREE T4 1.21 ng/dL (0.76-1.46); Glucose 199 mg/dL (74-106); LDH 179 U/L (85-227); Potassium 4.1 mmol/L (3.5-5.1); Sodium 134 mmol/L (136-145); TSH 4.63 uIU/mL (0.36-3.74); Total Protein 8.1 g/dL (6.4-8.2)
== END 2020-01-28 23:59 | disposition home or self-care (01) ==
LOC: INF 01:38
PROVIDERS: PCP Family Medicine; Visit Provider Internal Medicine Hospice and Palliative Medicine
DX: D46.9 Myelodysplastic syndrome, unspecified (principal); Z45.2 Encounter for adjustment and management of vascular access device; E03.9 Hypothyroidism, unspecified
CPT/HCPCS: 36591; 80053; 83615; 84439; 84443; 85025

== ENCOUNTER 2020-02-08 10:02 | Outpatient (RCR) | payer MEDICARE, MEDICAID, SELFPAY ==
[2020-02-08 10:38] LABS: Abs Immature Grans 0.02 k/cumm (0.0-0.09); Absolute Basophil Count 0.03 k/cumm (0.0-0.2); Absolute Eosinophil Count 0.45 k/cumm (0.0-0.7); Absolute Lymphocyte Count 1.84 k/cumm (1.2-3.4); Absolute Neutrophil Count 4.47 k/cumm (1.2-6.7); Basophils % 0.4; HGB 12.6 g/dL (13.5-17.5); Immature Grans % 0.3 %; Lymphocytes % 24.5; Mean Corp. HGB Concentration 33.2 g/dL (32.0-36.0); Mean Corpuscular Hemoglobin 26.8 pg (27.0-33.0); Mean Corpuscular Volume 80.7 fL (80-95); Mean Platelet Volume 8.9 fL (8.0-11.0); Monocytes % 9.3; Neutrophils % 59.5; Platelet Count 305 x1000/uL (130-400); RBC 4.71 m/cumm (4.50-6.00); RBC Distribution Width 14.9 % (11.8-14.1); White Blood Cell Count 7.51 k/cumm (4.4-10.8)
[2020-02-08] MEDS: Normal Saline Flush 10 ML SYR IVP (10:44)
[2020-02-08 10:59] LABS: ALT 24 U/L (16-63); AST 19 U/L (15-37); Albumin 3.6 g/dL (3.4-5.0); Alkaline Phosphatase 119 U/L (46-116); Anion Gap 9.2 mmol/L (3-11); BUN 18 mg/dL (7-18); Bilirubin, Total 0.3 mg/dL (0.2-1.0); CO2 27.8 mmol/L (21.0-32.0); Calcium 9.1 mg/dL (8.5-10.1); Chloride 102 mmol/L (98-107); Estimated GFR 49.96 (mL/min/1.73m2); FREE T4 1.19 ng/dL (0.76-1.46); Glucose 112 mg/dL (74-106); LDH 162 U/L (85-227); Potassium 3.9 mmol/L (3.5-5.1); Sodium 139 mmol/L (136-145); TSH 5.84 uIU/mL (0.36-3.74); Total Protein 7.9 g/dL (6.4-8.2)
== END 2020-02-27 23:59 | disposition home or self-care (01) ==
LOC: INF 10:02
PROVIDERS: PCP Family Medicine; Visit Provider Nurse Practitioner Adult Health
DX: C77.9 Secondary and unspecified malignant neoplasm of lymph node, unspecified (principal); Z45.2 Encounter for adjustment and management of vascular access device; E03.2 Hypothyroidism due to medicaments and other exogenous substances
CPT/HCPCS: 36591; 80053; 83615; 84439; 84443; 85025

== ENCOUNTER 2020-03-07 00:58 | Outpatient (RCR) | payer MEDICARE, MEDICAID, SELFPAY ==
[2020-03-07] MEDS: Normal Saline Flush 10 ML SYR IVP (12:03)
[2020-03-07 12:08] LABS: Abs Immature Grans 0.01 k/cumm (0.0-0.09); Absolute Basophil Count 0.02 k/cumm (0.0-0.2); Absolute Eosinophil Count 0.51 k/cumm (0.0-0.7); Absolute Lymphocyte Count 1.68 k/cumm (1.2-3.4); Absolute Monocyte Count 0.76 k/cumm (0.11-0.7); Absolute Neutrophil Count 5.09 k/cumm (1.2-6.7); Basophils % 0.2; Eosinophils % 6.3; HCT 38.9 % (40.0-50.0); HGB 12.6 g/dL (13.5-17.5); Immature Grans % 0.1 %; Lymphocytes % 20.8; Mean Corp. HGB Concentration 32.4 g/dL (32.0-36.0); Mean Corpuscular Hemoglobin 26.8 pg (27.0-33.0); Mean Corpuscular Volume 82.6 fL (80-95); Mean Platelet Volume 8.6 fL (8.0-11.0); Monocytes % 9.4; Neutrophils % 63.2; Platelet Count 305 x1000/uL (130-400); RBC 4.71 m/cumm (4.50-6.00); RBC Distribution Width 15.2 % (11.8-14.1); White Blood Cell Count 8.07 k/cumm (4.4-10.8)
[2020-03-07 12:31] LABS: ALT 26 U/L (16-63); AST 23 U/L (15-37); Albumin 3.6 g/dL (3.4-5.0); Alkaline Phosphatase 113 U/L (46-116); Anion Gap 8.7 mmol/L (3-11); BUN 16 mg/dL (7-18); Bilirubin, Total 0.3 mg/dL (0.2-1.0); CO2 28.3 mmol/L (21.0-32.0); CREATININE 1.33 mg/dL (0.70-1.30); Calcium 9.7 mg/dL (8.5-10.1); Chloride 102 mmol/L (98-107); FREE T4 1.18 ng/dL (0.76-1.46); Glucose 121 mg/dL (74-106); LDH 154 U/L (85-227); Potassium 3.8 mmol/L (3.5-5.1); Sodium 139 mmol/L (136-145); TSH 1.85 uIU/mL (0.36-3.74)
== END 2020-03-29 23:59 | disposition home or self-care (01) ==
LOC: INF 00:58
PROVIDERS: PCP Family Medicine; Visit Provider Nurse Practitioner Adult Health
DX: C77.9 Secondary and unspecified malignant neoplasm of lymph node, unspecified (principal); Z45.2 Encounter for adjustment and management of vascular access device
CPT/HCPCS: 36591; 80053; 83615; 84439; 84443; 85025

== ENCOUNTER 2020-04-04 01:30 | Outpatient (RCR) | payer MEDICARE, MEDICAID, SELFPAY ==
[2020-04-04 12:04] LABS: Abs Immature Grans 0.02 10^3/uL (0.0-0.06); Absolute Basophil Count 0.03 10^3/uL (0.0-0.2); Absolute Eosinophil Count 0.46 10^3/uL (0.0-0.7); Absolute Lymphocyte Count 1.38 10^3/uL (1.2-3.4); Absolute Neutrophil Count 5.36 10^3/uL (1.2-6.7); Basophils % 0.4; Eosinophils % 5.9; HCT 39.4 % (40.0-50.0); HGB 13.1 g/dL (13.5-17.5); Immature Grans % 0.3; Lymphocytes % 17.6; MCH 27.8 pg (27.0-33.0); MCHC 33.2 % (32.0-36.0); MCV 83.5 fL (80-95); MPV 8.6 fL (8.0-11.0); Monocytes % 7.6; Neutrophils % 68.2; Nucleated RBC 0 %; Platelet Count 243 10^3/uL (130-400); RBC 4.72 10^6/uL (4.36-5.78); RDW 14.3 % (11.8-14.1); RDW-SD 43.7 fL; WBC 7.85 10^3/uL (4.4-10.8)
[2020-04-04] MEDS: Normal Saline Flush 10 ML SYR IVP (12:15)
[2020-04-04 12:28] LABS: ALT 21 U/L (16-63); AST 15 U/L (15-37); Albumin 3.6 g/dL (3.4-5.0); Alkaline Phosphatase 106 U/L (46-116); BUN 18 mg/dL (7-18); Bilirubin, Total 0.5 mg/dL (0.2-1.0); CREATININE 1.32 mg/dL (0.70-1.30); Calcium 9.4 mg/dL (8.5-10.1); Chloride 101 mmol/L (98-107); Estimated GFR 53.47 (mL/min/1.73m2); FREE T4 1.08 ng/dL (0.76-1.46); Glucose 140 mg/dL (74-106); LDH 153 U/L (85-227); Potassium 4.1 mmol/L (3.5-5.1); Sodium 136 mmol/L (136-145); TSH 2.36 uIU/mL (0.36-3.74)
== END 2020-04-29 23:59 | disposition home or self-care (01) ==
LOC: INF 01:30
PROVIDERS: PCP Family Medicine; Visit Provider Nurse Practitioner Adult Health
DX: C77.9 Secondary and unspecified malignant neoplasm of lymph node, unspecified (principal); Z45.2 Encounter for adjustment and management of vascular access device
CPT/HCPCS: 36591; 80053; 83615; 84439; 84443; 85025

== ENCOUNTER 2020-05-02 02:00 | Outpatient (RCR) | payer MEDICARE, MEDICAID, SELFPAY ==
[2020-05-02] MEDS: Normal Saline Flush 10 ML SYR IVP (12:13)
[2020-05-02 12:37] LABS: Abs Immature Grans 0.03 10^3/uL (0.0-0.06); Absolute Basophil Count 0.03 10^3/uL (0.0-0.2); Absolute Monocyte Count 0.71 10^3/uL (0.1-0.8); Absolute Neutrophil Count 4.78 10^3/uL (1.2-6.7); Basophils % 0.4; Eosinophils % 8.7; HCT 37.6 % (40.0-50.0); HGB 12.6 g/dL (13.5-17.5); Immature Grans % 0.4; Lymphocytes % 22.4; MCH 27.8 pg (27.0-33.0); MCHC 33.5 % (32.0-36.0); Monocytes % 8.8; Neutrophils % 59.3; Nucleated RBC 0 %; Platelet Count 243 10^3/uL (130-400); RBC 4.53 10^6/uL (4.36-5.78); RDW 13.9 % (11.8-14.1); RDW-SD 42.2 fL; WBC 8.05 10^3/uL (4.4-10.8)
[2020-05-02 12:58] LABS: ALT 17 U/L (16-63); AST 16 U/L (15-37); Albumin 3.5 g/dL (3.4-5.0); Alkaline Phosphatase 108 U/L (46-116); Anion Gap 6.4 mmol/L (3-11); BUN 14 mg/dL (7-18); Bilirubin, Total 0.3 mg/dL (0.2-1.0); CO2 29.6 mmol/L (21.0-32.0); CREATININE 1.36 mg/dL (0.70-1.30); Calcium 9.5 mg/dL (8.5-10.1); Chloride 101 mmol/L (98-107); Estimated GFR 51.66 (mL/min/1.73m2); FREE T4 1.11 ng/dL (0.76-1.46); Glucose 124 mg/dL (74-106); LDH 158 U/L (85-227); Potassium 3.9 mmol/L (3.5-5.1); Sodium 137 mmol/L (136-145); TSH 2.89 uIU/mL (0.36-3.74); Total Protein 7.7 g/dL (6.4-8.2)
== END 2020-05-29 23:59 | disposition home or self-care (01) ==
LOC: INF 02:00
PROVIDERS: Internal Medicine Hospice and Palliative Medicine; PCP Family Medicine; Visit Provider Nurse Practitioner Adult Health
DX: C77.9 Secondary and unspecified malignant neoplasm of lymph node, unspecified (principal); Z45.2 Encounter for adjustment and management of vascular access device; E03.2 Hypothyroidism due to medicaments and other exogenous substances
CPT/HCPCS: 36591; 80053; 83615; 84439; 84443; 85025

== ENCOUNTER 2020-06-27 01:36 | Outpatient (RCR) | payer MEDICARE, MEDICAID, SELFPAY ==
[2020-05-30 12:25] LABS: Abs Immature Grans 0.03 10^3/uL (0.0-0.06); Absolute Basophil Count 0.03 10^3/uL (0.0-0.2); Absolute Eosinophil Count 0.78 10^3/uL (0.0-0.7); Absolute Lymphocyte Count 1.67 10^3/uL (1.2-3.4); Absolute Monocyte Count 0.67 10^3/uL (0.1-0.8); Absolute Neutrophil Count 5.56 10^3/uL (1.2-6.7); Basophils % 0.3; Eosinophils % 8.9; HCT 38.2 % (40.0-50.0); HGB 12.7 g/dL (13.5-17.5); Immature Grans % 0.3; Lymphocytes % 19.1; MCH 28.3 pg (27.0-33.0); MCHC 33.2 % (32.0-36.0); MCV 85.3 fL (80-95); MPV 8.9 fL (8.0-11.0); Monocytes % 7.7; Neutrophils % 63.7; Nucleated RBC 0 %; Platelet Count 260 10^3/uL (130-400); RBC 4.48 10^6/uL (4.36-5.78); RDW 13.2 % (11.8-14.1); RDW-SD 40.9 fL; WBC 8.74 10^3/uL (4.4-10.8)
[2020-05-30] MEDS: Normal Saline Flush 10 ML SYR IVP (12:32)
[2020-05-30 12:45] LABS: ALT 20 U/L (16-63); AST 17 U/L (15-37); Albumin 3.5 g/dL (3.4-5.0); Alkaline Phosphatase 101 U/L (46-116); Anion Gap 7.3 mmol/L (3-11); BUN 17 mg/dL (7-18); Bilirubin, Total 0.4 mg/dL (0.2-1.0); CO2 28.7 mmol/L (21.0-32.0); CREATININE 1.31 mg/dL (0.70-1.30); Calcium 9.7 mg/dL (8.5-10.1); Chloride 100 mmol/L (98-107); Estimated GFR 53.94 (mL/min/1.73m2); FREE T4 1.08 ng/dL (0.76-1.46); Glucose 195 mg/dL (74-106); LDH 168 U/L (85-227); Potassium 4.1 mmol/L (3.5-5.1); Sodium 136 mmol/L (136-145); TSH 6.12 uIU/mL (0.36-3.74)
== END 2020-06-29 23:59 | disposition home or self-care (01) ==
LOC: INF 01:36
PROVIDERS: PCP Family Medicine; Visit Provider Internal Medicine Hospice and Palliative Medicine
DX: E03.2 Hypothyroidism due to medicaments and other exogenous substances (principal); C77.9 Secondary and unspecified malignant neoplasm of lymph node, unspecified
CPT/HCPCS: 36591; 80053; 83615; 84439; 84443; 85025

== ENCOUNTER 2020-11-21 13:58 | Outpatient (RCR) | payer MEDICARE, MEDICAID, SELFPAY ==
[2020-11-21] MEDS: Heparin 500 UNITS/5 ML SYRINGE (14:03)
[2020-11-21] MEDS: Normal Saline Flush 10 ML SYR IVP (14:04)
[2020-11-21 14:11] LABS: Abs Immature Grans 0.02 10^3/uL (0.0-0.06); Absolute Basophil Count 0.03 10^3/uL (0.0-0.2); Absolute Eosinophil Count 0.51 10^3/uL (0.0-0.7); Absolute Lymphocyte Count 1.12 10^3/uL (1.2-3.4); Absolute Monocyte Count 0.78 10^3/uL (0.1-0.8); Absolute Neutrophil Count 5.68 10^3/uL (1.2-6.7); Basophils % 0.4; Eosinophils % 6.3; HCT 38.4 % (40.0-50.0); Immature Grans % 0.2; Lymphocytes % 13.8; MCH 28.5 pg (27.0-33.0); MCHC 33.9 % (32.0-36.0); MCV 84.2 fL (80-95); MPV 8.7 fL (8.0-11.0); Monocytes % 9.6; Neutrophils % 69.7; Nucleated RBC 0 %; Platelet Count 286 10^3/uL (130-400); RBC 4.56 10^6/uL (4.36-5.78); RDW 13.2 % (11.8-14.1); RDW-SD 40.5 fL; WBC 8.14 10^3/uL (4.4-10.8)
[2020-11-21 14:36] LABS: ALT 25 U/L (16-63); AST 17 U/L (15-37); Albumin 3.3 g/dL (3.4-5.0); Alkaline Phosphatase 88 U/L (46-116); Anion Gap 8.5 mmol/L (3-11); BUN 18 mg/dL (7-18); Bilirubin, Total 0.5 mg/dL (0.2-1.0); CO2 27.5 mmol/L (21.0-32.0); CREATININE 1.2 mg/dL (0.70-1.30); Calcium 9.3 mg/dL (8.5-10.1); Chloride 101 mmol/L (98-107); Estimated GFR 59.51 (mL/min/1.73m2); FREE T4 1.31 ng/dL (0.76-1.46); Glucose 110 mg/dL (74-106); Potassium 4.3 mmol/L (3.5-5.1); Sodium 137 mmol/L (136-145); TSH 0.86 uIU/mL (0.36-3.74); Total Protein 7.7 g/dL (6.4-8.2)
== END 2020-11-27 23:59 | disposition home or self-care (01) ==
LOC: INF 13:58
PROVIDERS: Nurse Practitioner Family; PCP Family Medicine; Visit Provider Internal Medicine Hospice and Palliative Medicine
DX: C34.12 Malignant neoplasm of upper lobe, left bronchus or lung (principal); E03.2 Hypothyroidism due to medicaments and other exogenous substances; Z45.2 Encounter for adjustment and management of vascular access device
CPT/HCPCS: 36591; 80053; 84439; 84443; 85025

== ENCOUNTER 2021-05-01 03:24 | Outpatient (CLI) | payer MEDICARE, MEDICAID, SELFPAY ==
[2021-05-01 13:23] LABS: Abs Immature Grans 0.05 10^3/uL (0.0-0.06); Absolute Basophil Count 0.05 10^3/uL (0.0-0.2); Absolute Eosinophil Count 0.43 10^3/uL (0.0-0.7); Absolute Lymphocyte Count 1.62 10^3/uL (1.2-3.4); Absolute Monocyte Count 0.56 10^3/uL (0.1-0.8); Absolute Neutrophil Count 6.35 10^3/uL (1.2-6.7); Basophils % 0.6; Eosinophils % 4.7; HCT 39.1 % (40.0-50.0); HGB 12.6 g/dL (13.5-17.5); Immature Grans % 0.6; Lymphocytes % 17.9; MCH 28.5 pg (27.0-33.0); MCHC 32.2 % (32.0-36.0); MCV 88.5 fL (80-95); MPV 8.5 fL (8.0-11.0); Monocytes % 6.2; Nucleated RBC 0 %; Platelet Count 335 10^3/uL (130-400); RBC 4.42 10^6/uL (4.36-5.78); RDW 13.7 % (11.8-14.1); RDW-SD 44.7 fL; WBC 9.06 10^3/uL (4.4-10.8)
[2021-05-01 13:50] LABS: ALT 18 U/L (16-63); AST 17 U/L (15-37); Albumin 3.4 g/dL (3.4-5.0); Alkaline Phosphatase 89 U/L (46-116); Anion Gap 6.9 mmol/L (3-11); BUN 16 mg/dL (7-18); Bilirubin, Total 0.3 mg/dL (0.2-1.0); CO2 30.1 mmol/L (21.0-32.0); CREATININE 1.2 mg/dL (0.70-1.30); Calcium 9.1 mg/dL (8.5-10.1); Chloride 104 mmol/L (98-107); Estimated GFR 59.51 (mL/min/1.73m2); Glucose 122 mg/dL (74-106); Potassium 4.1 mmol/L (3.5-5.1); Sodium 141 mmol/L (136-145); TSH 1.01 uIU/mL (0.36-3.74); Total Protein 7.8 g/dL (6.4-8.2)
== END 2021-05-01 03:25 | disposition home or self-care (01) ==
LOC: LBO 03:25
PROVIDERS: PCP Family Medicine; Visit Provider Nurse Practitioner Family
DX: C34.12 Malignant neoplasm of upper lobe, left bronchus or lung (principal); E03.2 Hypothyroidism due to medicaments and other exogenous substances
CPT/HCPCS: 36415; 80053; 84439; 84443; 85025

== ENCOUNTER 2022-01-01 03:43 | Outpatient (CLI) | payer MEDICARE, MEDICAID, SELFPAY | END 2022-01-01 03:44 | disposition home or self-care (01) | LOC: LBO 03:43 | PROVIDERS: PCP Internal Medicine Clinical Cardiac Electrophysiology; Visit Provider Internal Medicine Hematology & Oncology ==